=== PATIENT | female | born 1970 | race Caucasian/White ===

== ENCOUNTER → 2020-05-28 11:00 | Outpatient (BNVA) | payer SELFPAY | PROVIDERS: Family Provider Family Medicine; PCP Family Medicine; Visit Provider Family Medicine | DX: Z00.00 Encounter for general adult medical examination without abnormal findings (principal) | CPT/HCPCS: 88175 ==

== ENCOUNTER 2020-07-11 08:08 | Outpatient (CLI) | payer SELFPAY ==
--- NOTE | 2020-07-11 08:30 | MM_ITS ---
WS: [id number] Bilateral screening digital mammogram, 07/11/2020 Clinical Data: screening Comparison: 12/15/2015 Findings: The breast parenchymal pattern shows fat replacement. No spiculated masses or clustered calcification s are seen. There are no secondary signs of carcinoma. MM/[id number] Impression: 1. Negative bilateral mammogram unchanged. 2. Recommend annual screening mammograms. BIRADS: 1-Negative FOLLOW UP: 1 Year Follow-up The CAD photo checker and assembler was used.
== END 2020-07-11 08:09 | disposition home or self-care (01) ==
LOC: RADSHAW 08:10
PROVIDERS: PCP Family Medicine; Visit Provider Family Medicine
DX: Z12.31 Encounter for screening mammogram for malignant neoplasm of breast (principal)
CPT/HCPCS: 77067

== ENCOUNTER → 2021-11-16 12:44 | Outpatient (BNVA) | payer SELFPAY | PROVIDERS: PCP Family Medicine; Visit Provider Family Medicine | DX: E87.6 Hypokalemia (principal); I87.2 Venous insufficiency (chronic) (peripheral); F32.9 Major depressive disorder, single episode, unspecified | CPT/HCPCS: 80048 ==

== ENCOUNTER → 2022-02-21 16:00 | Outpatient (BNVA) | payer SELFPAY | PROVIDERS: PCP Family Medicine | DX: J02.0 Streptococcal pharyngitis (principal) | CPT/HCPCS: 87880 ==

== ENCOUNTER → 2025-05-29 11:18 | Outpatient (BNVA) | payer SELFPAY | PROVIDERS: PCP Family Medicine; Visit Provider Family Medicine | DX: E87.6 Hypokalemia (principal); E78.00 Pure hypercholesterolemia, unspecified | CPT/HCPCS: 80053; 80061; 85025 ==